=== PATIENT | female | born 1985 | race Caucasian/White ===

== ENCOUNTER 2018-03-07 19:08 | Emergency (ER) | END 2018-03-07 22:25 | disposition home or self-care (01) ==

== ENCOUNTER 2018-03-09 12:42 | Emergency (ER) | END 2018-03-09 16:03 | disposition left against medical advice (07) ==

== ENCOUNTER 2018-03-14 09:54 | Emergency (ER) | END 2018-03-14 11:34 | disposition home or self-care (01) ==